=== PATIENT | female | born 1980 | race African-American/Black ===

== ENCOUNTER 2023-04-27 16:40 | Emergency (ER) | payer BC ==
[~2023-04-27] VITALS: Ht 180.3 cm; Wt 62.6 kg
[2023-04-27 17:08] VITALS: BP 127/76; TEMP 98.7; O2SAT 100
== END 2023-04-27 17:40 | disposition left against medical advice (07) ==
LOC: ER 16:44
DX: R42 Dizziness and giddiness (principal); R11.0 Nausea; Z53.21 Procedure and treatment not carried out due to patient leaving prior to being seen by health care provider